=== PATIENT | female | born 1995 | race Caucasian/White ===

== ENCOUNTER → 2017-01-03 | Outpatient (CLI) | payer BC ==
[2017-01-06 15:43] LABS: CHLAMYDIA TRACH RNA*** NOT DETECTED (NOT DETECTED); GC (NEIS GONORRHOEAE)RNA** NOT DETECTED (NOT DETECTED)
== END | disposition home or self-care (01) ==
LOC: C.LABSPEC 17:30
PROVIDERS: ATTEND Obstetrics & Gynecology
DX: Z11.3 Encounter for screening for infections with a predominantly sexual mode of transmission (principal)

== ENCOUNTER → 2017-01-24 | Outpatient (CLI) | payer BC ==
[2017-01-24 18:28] LABS: HEPATITIS B AB NEG
== END | disposition home or self-care (01) ==
LOC: C.LABPVFM 16:24
PROVIDERS: ATTEND Dentist Oral and Maxillofacial Pathology
DX: T14.90 Injury, unspecified (principal); X58.XXXA Exposure to other specified factors, initial encounter